=== PATIENT | male | born 1975 | race Caucasian/White ===

== ENCOUNTER 2020-01-11 11:44 | Emergency (ER) | payer MEDICAID ==
[~2020-01-11] VITALS: Ht 175.3 cm; Wt 79.4 kg
--- NOTE | 2020-01-11 12:40 | NUR ---
DR DAVIDSON, [facility] PATIENT
--- NOTE | 2020-01-11 12:47 | NUR ---
Patient discharged to home in stable condition. Written and verbal after care instructions given. Patient verbalizes understanding of instruction.
[2020-01-11 12:48] VITALS: BP 120/76
== END 2020-01-11 12:51 | disposition home or self-care (01) ==
LOC: ER 11:50
DX: H60.93 Unspecified otitis externa, bilateral (principal); H72.91 Unspecified perforation of tympanic membrane, right ear; J45.909 Unspecified asthma, uncomplicated

== ENCOUNTER 2021-07-11 18:17 | Emergency (ER) | payer MEDICAID, OTHER ==
[~2021-07-11] VITALS: Ht 175.3 cm; Wt 79.8 kg
[2021-07-11 19:15] VITALS: BP 130/79
--- NOTE | 2021-07-11 19:20 | NUR ---
PT BIBSELF C/O HEADACHE FOR 2 MONTHS ON AND OFF WORST WHEN DRIVING. PT A/O, RR EVEN AND UNLABORED, NO SOB NOTED. PT CONNECTED TO MONITORS.
--- NOTE | 2021-07-11 19:31 | NUR ---
REPORT GIVEN TO NURSE GOKUL FOR MEIR
[2021-07-11 20:02] LABS: BASOPHILS % (AUTO) 0.6 % (0.0-2.0); EOSINOPHILS % (AUTO) 6.8 % (0.0-6.0); HEMATOCRIT 40 % (39-51); HEMOGLOBIN 13.6 g/dL (13.5-17.5); LYMPHOCYTES # (AUTO) 2.5 K/uL (0.8-4.8); LYMPHOCYTES % (AUTO) 35.8 % (20.0-44.0); MEAN CORPUSCULAR HGB CONC 34 g/dl (31.0-36.0); MEAN CORPUSCULAR VOLUME 90 fL (80-96); MONOCYTES # (AUTO) 0.4 K/uL (0.1-1.30); MONOCYTES % (AUTO) 5.5 % (2.0-12.0); NEUTROPHILS # (AUTO) 3.5 K/uL (1.8-8.9); NEUTROPHILS % (AUTO) 51.3 % (43.0-81.0); PLATELET COUNT (AUTO) 195 K/uL (150-450); RED BLOOD CELL COUNT(AUTO) 4.45 MIL/uL (4.5-6.0); WHITE BLOOD COUNT (AUTO) 6.9 K/uL (4.3-11.0)
[2021-07-11 20:04] LABS: ALBUMIN 4.2 g/dL (3.4-5.0); BILIRUBIN,DIRECT 0.1 mg/dL (0.0-0.2); BILIRUBIN,TOTAL 0.3 mg/dL (0.2-1.0); CALCIUM, SERUM 8.6 mg/dL (8.5-10.1); POTASSIUM 3.8 mmol/L (3.5-5.1); TOTAL PROTEIN, SERUM 7.4 g/dL (6.4-8.2)
[2021-07-11] MEDS ORDERED: BUTA1CAP46 PO (20:50)
--- NOTE | 2021-07-11 21:02 | NUR ---
Patient discharged to home in stable condition. Rx and Written and verbal after care instructions given. Patient verbalizes understanding of instruction.
== END 2021-07-11 21:02 | disposition home or self-care (01) ==
LOC: ER 18:19
DX: G44.209 Tension-type headache, unspecified, not intractable (principal); I10 Essential (primary) hypertension; E11.9 Type 2 diabetes mellitus without complications; J45.909 Unspecified asthma, uncomplicated
CPT/HCPCS: 36415; 70450-TC; 72125-TC; 80048-TC; 80076-TC; 85025-TC; 85652-TC

== ENCOUNTER 2022-04-14 05:10 | Emergency (ER) | payer MEDICAID, OTHER ==
[~2022-04-14] VITALS: Ht 175.3 cm; Wt 74.8 kg
[~2022-04-14 05:10] MED LIST: BUTA1CAP46 PO
[2022-04-14 05:15] VITALS: BP 125/70
--- NOTE | 2022-04-14 05:15 | NUR ---
BIBS C/O BEING EXPOSED TO CARBON MONOXIDE, C/O "ITCHY THROAT"
--- NOTE | 2022-04-14 06:45 | NUR ---
RT AT PT'S BEDSIDE FOR ABG
--- NOTE | 2022-04-14 07:15 | NUR ---
Patient discharged to home in stable condition. Written and verbal after care instructions given. Patient verbalizes understanding of instruction.
== END 2022-04-14 07:15 | disposition home or self-care (01) ==
LOC: ER 05:12
DX: T58.91XA Toxic effect of carbon monoxide from unspecified source, accidental (unintentional), initial encounter (principal); R51.9 Headache, unspecified; J45.909 Unspecified asthma, uncomplicated; Z79.899 Other long term (current) drug therapy; Y92.89 Other specified places as the place of occurrence of the external cause